=== PATIENT | female | born 1990 | race American Indian/Alaskan Native ===

== ENCOUNTER 2017-12-04 15:46 | Emergency (ER) | payer MEDICAID ==
[2017-12-04] MEDS ORDERED: ZOFRAN ONE ×2 (16:28→20:06)
[2017-12-04] MEDS ORDERED: ZOFRAN IV ONE ×2 (16:30→20:12)
[2017-12-04 18:25] LABS: Basophils % (Auto) 0.2 % (0.0-1.8); Eosinophils # (Auto) 0.1 K/mm3 (0.0-0.4); Eosinophils % (Auto) 0.5 % (0.0-4.3); Hematocrit 37.5 % (30.3-42.9); Hemoglobin 12.6 gm/dl (10.1-14.3); Lymphocytes # (Auto) 1.8 K/mm3 (1.2-5.4); Lymphocytes % (Auto) 11.7 % (13.4-35.0); Mean Corpuscular HGB Conc 34 % (30-34); Mean Corpuscular Hemoglobin 29 pg (28-32); Mean Corpuscular Volume 87 fl (79-97); Monocytes # (Auto) 0.8 K/mm3 (0.0-0.8); Monocytes % (Auto) 4.9 % (0.0-7.3); Platelet Count 319 K/mm3 (140-440); Red Blood Count 4.33 M/mm3 (3.65-5.03); Red Cell Distribution Width 14.7 % (13.2-15.2)
[2017-12-04 18:49] LABS: Alanine Aminotransferase 17 units/L (7-56); Albumin 4.3 g/dL (3.9-5); BUN/Creatinine Ratio 14; Blood Urea Nitrogen 11 mg/dL (7-17); Calcium 9.3 mg/dL (8.4-10.2); Hemolysis Index 13; Lipase 15 units/L (13-60)
[2017-12-04] MEDS ORDERED: NACL 0.9% 1000 ML 1,000 ML ONE (20:18)
[2017-12-04] MEDS ORDERED: NACL 0.9% 1000 ML 1,000 ML IV ONE (20:21)
[2017-12-04] MEDS ORDERED: TYLENOL PO ONE (21:03)
[2017-12-04] MEDS ORDERED: TYLENOL ONE (21:06)
[2017-12-05] MEDS ORDERED: NACL 0.9% 1000 ML 1,000 ML IV ONE (00:59)
[2017-12-05] MEDS ORDERED: MORPHINE IV ONE (01:00)
--- NOTE | 2017-12-05 01:11 | Emergency Department Report ---
HPI - General Chief Complaint: Abdominal Pain Time Seen by Provider: 12/05/17 00:54 - HPI HPI: 27-year-old [place] female presents to the emergency department with a complaint of some mid abdominal pain, nausea and vomiting that started about 2: 30 this afternoon. She says that she has been vomiting to the point where she has dry heaving and it just improved after multiple doses of Zofran, 1 of which she received in route with EMS. She still has some abdominal discomfort. The patient says that she has a history of this without any diagnosed etiology. She has a history of umbilical hernia that has been repaired 3 times, last time in January 2016 with a mesh. She denies any fever, vaginal discharge, dysuria. There is a small amount of vaginal bleeding which she says is abnormal for her as she has a Mirena and says she has not had any period in about one year. Recent travel or sick contacts at home. 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 Gastro issues - Social History Smoking Status: Current Every Day Smoker Substance Use Type: None - Medications Home Medications: Home Medications Medication Instructions Recorded Confirmed Last Taken Type Fluconazole [Diflucan TAB] 150 mg PO ONCE #1 tablet 12/05/17 Unknown Rx HYDROcodone/ACETAMINOPHEN [[place] 1 each PO Q8H PRN #8 tablet 12/05/17 Unknown Rx 5-325 Tablet] Nitrofurantoin Monohyd/M-Cryst 100 mg PO BID #14 capsule 12/05/17 Unknown Rx [Macrobid 100 mg Capsule] Ondansetron [Zofran Odt] 4 mg PO Q8HR PRN #10 tab.rapdis 12/05/17 Unknown Rx ED Review of Systems ROS: Stated complaint: NAUSEA/VOMITING Other details as noted in HPI Comment: All other systems reviewed and negative Constitutional: denies: chills, fever Eyes: denies: eye pain, eye discharge, vision change ENT: denies: ear pain, throat pain Respiratory: denies: cough, shortness of breath, wheezing Cardiovascular: denies: chest pain, palpitations Gastrointestinal: abdominal pain, nausea, vomiting Genitourinary: denies: urgency, dysuria Musculoskeletal: denies: back pain, joint swelling, arthralgia Skin: denies: rash, lesions Neurological: denies: headache, weakness, paresthesias Physical Exam - Physical Exam Vital Signs: Vital Signs 12/04/17 12/04/17 16:22 23:50 Temperature 98.1 F Pulse Rate 87 78 Respiratory 18 18 Rate Blood Pressure 110/80 97/72 O2 Sat by Pulse 100 96 Oximetry Physical Exam: GENERAL: The patient is well-developed well-nourished. HENT: Normocephalic. Atraumatic. Patient has moist mucous membranes. EYES: Extraocular motions are intact. Pupils equal reactive to light bilaterally. NECK: Supple. Trachea is midline. CHEST/LUNGS: Clear to auscultation. There is no respiratory distress noted. HEART/CARDIOVASCULAR: Regular. There is no tachycardia. There is no murmur. ABDOMEN: Abdomen is soft. Mild generalized tenderness to palpation of the abdomen. No guarding or rebound tenderness. Patient has normal bowel sounds. There is no abdominal distention. SKIN: Skin is warm and dry. NEURO: The patient is awake, alert, and oriented. The patient is cooperative. The patient has no focal neurologic deficits. The patient has normal speech. MUSCULOSKELETAL: There is no tenderness or deformity. There is no limitation range of motion. There is no evidence of acute injury. ED Course Vital Signs 12/04/17 12/04/17 16:22 23:50 Temperature 98.1 F Pulse Rate 87 78 Respiratory 18 18 Rate Blood Pressure 110/80 97/72 O2 Sat by Pulse 100 96 Oximetry ED Medical Decision Making - Lab Data Result diagrams: 12/04/17 17:30 12/04/17 17:30 - Radiology Data Radiology results: report reviewed, image reviewed interpreted by me: Abdominal x-ray shows nonspecific nonobstructive bowel gas. PROCEDURE: CT ABDOMEN PELVIS W CON TECHNIQUE: Computerized axial tomography of the abdomen and pelvis was performed after the IV injection of iodinated nonionic contrast. HISTORY: Abd pain COMPARISON: No prior studies are available for comparison. FINDINGS: Visualized lower thorax: No significant abnormality. Liver: Normal size and attenuation. Spleen: Normal size and attenuation. Gallbladder and biliary system: Normal. Pancreas: Normal. Adrenals: Normal. Kidneys: Both kidneys have a normal size. No hydronephrosis. No renal stones or masses. GI tract: The stomach is normal. The small bowel has a normal caliber without obstruction. No ileus or enteritis. The cecum, appendix and colon are normal. Lymph nodes and mesentery: Normal. Vasculature: Normal. Bladder: Normal. Reproductive organs: There is an intrauterine device within the uterus.. Peritoneum: No free fluid. Musculoskeletal structures: No significant abnormality. Other: None. IMPRESSION: There is no evidence of intestinal urinary tract obstruction. No ileus or enteritis. There is an intrauterine device in the uterus. Transcribed By: [facility] Dictated By: JEMIMA ALEXANDER MD Electronically Authenticated By: JEMIMA ALEXANDER MD Signed Date/Time: 12/05/17 0200 - Medical Decision Making Patient presents with some nausea, vomiting and some abdominal discomfort that started earlier in the afternoon. Labs show a leukocytosis and UTI. Otherwise no electrolyte abnormalities, renal deficiency, glucose abnormalities and she has normal belly labs. Patient received a dose of pain medication and it dropped her blood pressure but the patient also was probably dehydrated so she received a few bags of IV fluid with improvement. A CT of the abdomen and pelvis was done that did not show any acute process. Vital signs stable throughout ED course including being afebrile. She is feeling improved. Seen ambulatory in the emergency department and appears stable. She was discharged home with a referral for primary care and gastroenterology. She was given prescriptions for pain, nausea, antibiotics and something to avoid a yeast infection secondary to the antibiotics. She will increase her oral rehydration and will return to the emergency Department with any worsening of her symptoms or any acute distress. - Differential Diagnosis gastroenteritis, food poisoning, cannabinoid hyperemesis syndrome, pregnanc Critical Care Time: No Critical care attestation.: If time is entered above; I have spent that time in minutes in the direct care of this critically ill patient, excluding procedure time. ED Disposition Clinical Impression: Dehydration Abdominal pain Qualifiers: Abdominal location: generalized Qualified Code(s): R10.84 - Generalized abdominal pain Nausea & vomiting Qualifiers: Vomiting type: unspecified Vomiting Intractability: non-intractable Qualified Code(s): R11.2 - Nausea with vomiting, unspecified UTI (urinary tract infection) Qualifiers: Urinary tract infection type: acute cystitis Hematuria presence: with hematuria Qualified Code(s): N30.01 - Acute cystitis with hematuria Disposition: TO HOME OR SELFCARE Is pt being admited?: No Condition: Stable Instructions: Dehydration (ED), Urinary Tract Infection in Women (ED), Acute Nausea and Vomiting (ED), Abdominal Pain (ED) Additional Instructions: Please follow up with a primary care physician and lease buyer. I've continued referral for a local lease buyer, Dr. Whitney, follow-up regarding her abdominal pain, nausea, vomiting. Increase your oral rehydration. Return to the emergency department with any worsening of your symptoms, intractable vomiting, or any acute distress. Prescriptions: HYDROcodone/ACETAMINOPHEN [[place] 5-325 Tablet] 1 each PO Q8H PRN #8 tablet PRN Reason: Pain Ondansetron [Zofran Odt] 4 mg PO Q8HR PRN #10 tab.rapdis PRN Reason: Nausea Referrals: PRIMARY CARE, [Primary Care Provider] - 3-5 Days MATY WHITNEY MD [Staff Physician] - 3-5 Days PANDA COELHO MD [Staff Physician] - 3-5 Days [facility] [Outside] - 3-5 Days Time of Disposition: 06:26
[2017-12-05 01:23] LABS: Bilirubin,Urine NEG (Negative); Blood,Urine LG (Negative); Calcium Oxalate Crystals,Urine 3+; Color,Urine Yellow (Yellow); Mucus,Urine 3+ /HPF; Nitrite,Urine NEG (Negative); Urobilinogen,Urine < 2.0 mg/dL (<2.0)
--- NOTE | 2017-12-05 01:44 | XRay Report ---
FINAL REPORT PROCEDURE: XR ABDOMEN 2V TECHNIQUE: Abdominal radiograph, single supine AP view. HISTORY: Abd pain COMPARISON: No prior studies are available for comparison. FINDINGS: Bowel gas pattern:Nonobstructive. Masses or calcifications:None. Bony structures:No significant abnormality. Other:None. IMPRESSION: No acute abnormality
[2017-12-05] MEDS ORDERED: ROCEPHIN/NS 1 GM/50 ML 1 GM/50 ML BAG IV ONE (02:22)
[2017-12-05] MEDS ORDERED: cefTRIAXone 1 GM in NACL 0.9% 20 ML IV ONE (02:30)
[2017-12-05] MEDS ORDERED: REGLAN IV ONE (05:03)
--- NOTE | 2017-12-05 06:03 | Cat Scan Report ---
FINAL REPORT PROCEDURE: CT ABDOMEN PELVIS W CON TECHNIQUE: Computerized axial tomography of the abdomen and pelvis was performed after the IV injection of iodinated nonionic contrast. HISTORY: Abd pain COMPARISON: No prior studies are available for comparison. FINDINGS: Visualized lower thorax: No significant abnormality. Liver: Normal size and attenuation. Spleen: Normal size and attenuation. Gallbladder and biliary system: Normal. Pancreas: Normal. Adrenals: Normal. Kidneys: Both kidneys have a normal size. No hydronephrosis. No renal stones or masses. GI tract: The stomach is normal. The small bowel has a normal caliber without obstruction. No ileus or enteritis. The cecum, appendix and colon are normal. Lymph nodes and mesentery: Normal. Vasculature: Normal. Bladder: Normal. Reproductive organs: There is an intrauterine device within the uterus.. Peritoneum: No free fluid. Musculoskeletal structures: No significant abnormality. Other: None. IMPRESSION: There is no evidence of intestinal urinary tract obstruction. No ileus or enteritis. There is an intrauterine device in the uterus.
[2017-12-05 06:48] VITALS: BP 106/76
== END 2017-12-05 06:45 | disposition home or self-care (01) ==
LOC: ED 15:46
DX: N30.01 Acute cystitis with hematuria (principal); R11.2 Nausea with vomiting, unspecified; R10.84 Generalized abdominal pain; E86.0 Dehydration; F17.200 Nicotine dependence, unspecified, uncomplicated
CPT/HCPCS: 36415; 74019; 74177; 80053; 81001; 83690; 84703; 85025; 96361; 96365; 96375; 96376; 99285; J0696; J2270; J2405; J7030; Q9967

== ENCOUNTER 2018-04-07 21:18 | Emergency (ER) | payer MEDICAID ==
[2018-04-07] MEDS ORDERED: MORPHINE IV ONE (21:42)
[2018-04-07] MEDS ORDERED: ZOFRAN IV ONE (21:43)
--- NOTE | 2018-04-07 21:45 | Emergency Department Report ---
HPI - General Time Seen by Provider: 04/07/18 21:32 - HPI HPI: 28-year-old female presents to the emergency department by EMS from home with complaint of generalized abdominal pain, nausea and vomiting that started earlier this evening while she was watching television. She did not receive anything in route with EMS. The patient was here in November and seen by myself for similar symptoms and there was some mention at that time that she had had symptoms similar to that as well even prior to that visit. She also had a previous history of a ventral hernia. However the CT scan of the abdomen and pelvis at that time did not show any acute process. And she was referred to a cleaning associate. She says that she did see a cleaning associate in the next month, although she cannot remember her name, and says that she had a full workup including EGD and was found to have H. pylori. She took the medications for this. She also says that she saw this cleaning associate about one week ago and is having this test redone but does not have the results. She denies any fever, vaginal bleeding or discharge, dysuria. No recent travel or sick contacts at home. ED Past Medical Hx - Past Medical History Hx Asthma: Yes Additional medical history: umbillical hernia. pseudo seizures. Gastro issues - Social History Smoking Status: Current Every Day Smoker Substance Use Type: None - Medications Home Medications: Home Medications Medication Instructions Recorded Confirmed Last Taken Type Omeprazole Magnesium [PriLOSEC Otc] 20 mg PO QDAY 04/07/18 04/07/18 04/07/18 History HYDROcodone/APAP 5-325 [[place] 1 each PO Q8H PRN #6 tablet 04/08/18 Unknown Rx 5/325] Ondansetron [Zofran Odt] 4 mg PO Q8H PRN #10 tab.rapdis 04/08/18 Unknown Rx ED Review of Systems ROS: Stated complaint: N&V Other details as noted in HPI Comment: All other systems reviewed and negative Constitutional: denies: chills, fever Eyes: denies: eye pain, eye discharge, vision change ENT: denies: ear pain, throat pain Respiratory: denies: cough, shortness of breath, wheezing Cardiovascular: denies: chest pain, palpitations Gastrointestinal: abdominal pain, nausea, vomiting Genitourinary: denies: urgency, dysuria, discharge Musculoskeletal: denies: back pain, joint swelling, arthralgia Skin: denies: rash, lesions Neurological: denies: headache, weakness, paresthesias Physical Exam - Physical Exam Physical Exam: GENERAL: The patient is well-developed well-nourished. Patient is retching into a vomit bag. HENT: Normocephalic. Atraumatic. Patient has moist mucous membranes. EYES: Extraocular motions are intact. Pupils equal reactive to light bilaterally. NECK: Supple. Trachea is midline. CHEST/LUNGS: Clear to auscultation. There is no respiratory distress noted. HEART/CARDIOVASCULAR: Regular. There is no tachycardia. There is no murmur. ABDOMEN: Abdomen is soft. There is some generalized tenderness to palpation of the abdomen. No guarding. Patient has normal bowel sounds. There is no abdominal distention. SKIN: Skin is warm and dry. NEURO: The patient is awake, alert, and oriented. The patient is cooperative. The patient has no focal neurologic deficits. MUSCULOSKELETAL: There is no tenderness or deformity. There is no limitation range of motion. There is no evidence of acute injury. ED Medical Decision Making - Lab Data Result diagrams: 04/07/18 21:49 04/07/18 21:49 - Radiology Data Radiology results: image reviewed interpreted by me: Abdominal x-ray shows nonspecific nonobstructive bowel gas. - Medical Decision Making This patient, who has a history of GI problems and H. pylori, presents with acute abdominal pain, nausea and vomiting. She came in very nauseated and retching. Labs were mostly unremarkable except for some signs of mild dehydration starting. Abdominal x-ray showed some nonspecific nonobstructive bowel gas. Vital signs are stable including being afebrile. The patient was given some IV fluid, pain medication and nausea medication. It did require a few different antiemetics but eventually she was feeling improved and was able to pass an oral challenge of fluid. She was reevaluated multiple times over multiple hours and appears safe for discharge home at this time. She has good follow-up with gastroenterology. She was sent home with Zofran and a very small amount of pain medication. She was encouraged to return to the emergency Department with any worsening of her symptoms or any acute distress. She understands and agrees to the plan. - Differential Diagnosis gastroparesis, bowel obstruction, GERD, colitis Critical Care Time: No Critical care attestation.: If time is entered above; I have spent that time in minutes in the direct care of this critically ill patient, excluding procedure time. ED Disposition Clinical Impression: Dehydration Abdominal pain Qualifiers: Abdominal location: unspecified location Qualified Code(s): R10.9 - Unspecified abdominal pain Nausea & vomiting Qualifiers: Vomiting type: unspecified Vomiting Intractability: non-intractable Qualified Code(s): R11.2 - Nausea with vomiting, unspecified Disposition: TO HOME OR SELFCARE Is pt being admited?: No Condition: Stable Instructions: Dehydration (ED), Acute Nausea and Vomiting (ED), Abdominal Pain (ED) Additional Instructions: Increase your oral rehydration. Return to the emergency Department with any worsening of your symptoms or any acute distress. Otherwise follow-up with your primary care physician and your cleaning associate at [facility]. Prescriptions: HYDROcodone/APAP 5-325 [[place] 5/325] 1 each PO Q8H PRN #6 tablet PRN Reason: Pain Ondansetron [Zofran Odt] 4 mg PO Q8H PRN #10 tab.rapdis PRN Reason: Nausea Referrals: PRIMARY CARE, [Referring] - 3-5 Days Time of Disposition: 00:39
[2018-04-07 21:54] VITALS: BP 112/68
[2018-04-07 22:05] LABS: Basophils % (Auto) 0.3 % (0.0-1.8); Eosinophils # (Auto) 0.1 K/mm3 (0.0-0.4); Eosinophils % (Auto) 0.4 % (0.0-4.3); Hematocrit 42.7 % (30.3-42.9); Hemoglobin 13.6 gm/dl (10.1-14.3); Lymphocytes # (Auto) 1.8 K/mm3 (1.2-5.4); Lymphocytes % (Auto) 13.3 % (13.4-35.0); Mean Corpuscular HGB Conc 32 % (30-34); Mean Corpuscular Hemoglobin 28 pg (28-32); Mean Corpuscular Volume 88 fl (79-97); Monocytes # (Auto) 0.7 K/mm3 (0.0-0.8); Monocytes % (Auto) 5.1 % (0.0-7.3); Platelet Count 295 K/mm3 (140-440); Red Blood Count 4.83 M/mm3 (3.65-5.03); Red Cell Distribution Width 14.8 % (13.2-15.2)
[2018-04-07] MEDS ORDERED: REGLAN IV ONE (22:20)
[2018-04-07 22:21] LABS: Albumin 3.7 g/dL (3.9-5); BUN/Creatinine Ratio 12; Blood Urea Nitrogen 11 mg/dL (7-17); Calcium 8.7 mg/dL (8.4-10.2); Hemolysis Index 136; Lipase 11 units/L (13-60)
[2018-04-07 22:34] LABS: Alanine Aminotransferase 20 units/L (7-56)
[2018-04-08 00:05] LABS: Amorphous Crystals,Urine 1+; Bilirubin,Urine NEG (Negative); Blood,Urine NEG (Negative); Color,Urine Yellow (Yellow); Hyaline Casts,Urine 5 /LPF; Mucus,Urine 3+ /HPF; Urobilinogen,Urine < 2.0 mg/dL (<2.0)
--- NOTE | 2018-04-08 00:17 | XRay Report ---
FINAL REPORT PROCEDURE: XR ABDOMEN 2V TECHNIQUE: Abdominal series, including supine and upright AP views. HISTORY: Abd pain COMPARISON: No prior studies are available for comparison. FINDINGS: Bowel gas pattern:Nonobstructive . Masses or calcifications:None . Bony structures:No significant abnormality . Pneumoperitoneum:None . Other:No significant findings . IMPRESSION: No acute abnormality.
== END 2018-04-08 02:30 | disposition home or self-care (01) ==
LOC: ED 21:18
DX: E86.0 Dehydration (principal); F17.200 Nicotine dependence, unspecified, uncomplicated
CPT/HCPCS: 36415; 74019; 80053; 81001; 83690; 84703; 85025; 96374; 96375; 99284; J2270; J2405; J2765

== ENCOUNTER 2018-05-19 11:10 | Inpatient (IN) | payer MEDICAID ==
[2018-05-19] MEDS ORDERED: NACL 0.9% 1000 ML 1,000 ML IV ONE (11:28)
[2018-05-19] MEDS ORDERED: REGLAN IV ONE (11:30)
[2018-05-19] MEDS ORDERED: ZOFRAN IV ONE (11:30)
[2018-05-19] MEDS ORDERED: BENADRYL IV ONE (11:30)
[2018-05-19] MEDS ORDERED: DILAUDID IV ONE ×2 (11:35→14:09)
[2018-05-19] MEDS ORDERED: REGLAN ONE (11:49)
[2018-05-19] MEDS ORDERED: BENADRYL ONE (11:49)
[2018-05-19] MEDS ORDERED: DILAUDID ONE ×3 (11:49→19:28)
[2018-05-19] MEDS ORDERED: ZOFRAN ONE (11:49)
[2018-05-19] MEDS ORDERED: NACL 0.9% 1000 ML 1,000 ML ONE ×2 (11:53→19:04)
[2018-05-19 12:03] LABS: Basophils % (Auto) 0.5 % (0.0-1.8); Eosinophils # (Auto) 0.2 K/mm3 (0.0-0.4); Eosinophils % (Auto) 2.1 % (0.0-4.3); Hematocrit 42.3 % (30.3-42.9); Hemoglobin 13.9 gm/dl (10.1-14.3); Lymphocytes # (Auto) 2.3 K/mm3 (1.2-5.4); Lymphocytes % (Auto) 21.4 % (13.4-35.0); Mean Corpuscular HGB Conc 33 % (30-34); Mean Corpuscular Hemoglobin 29 pg (28-32); Mean Corpuscular Volume 88 fl (79-97); Monocytes # (Auto) 0.7 K/mm3 (0.0-0.8); Monocytes % (Auto) 6.7 % (0.0-7.3); Platelet Count 343 K/mm3 (140-440); Red Blood Count 4.82 M/mm3 (3.65-5.03)
[2018-05-19 12:26] LABS: Alanine Aminotransferase 52 units/L (7-56); Albumin 3.9 g/dL (3.9-5); BUN/Creatinine Ratio 10; Blood Urea Nitrogen 9 mg/dL (7-17); Calcium 8.9 mg/dL (8.4-10.2); Hemolysis Index 9; Lipase 16 units/L (13-60)
--- NOTE | 2018-05-19 14:02 | Emergency Department Report ---
ED Abdominal Pain HPI - General Chief Complaint: Abdominal Pain Stated Complaint: n/v Time Seen by Provider: 05/19/18 11:29 Source: patient Mode of arrival: Stretcher Limitations: No Limitations - History of Present Illness Initial Comments: 28-year-old female with a past medical history of umbilical hernia, pseudoseizures, previous H. pylori infection, and asthma presents to the hospital with complaints of right lower quadrant abdominal pain since May 11. Patient was sharp, moderate to severe in intensity, intermittent, gradually worsening. She was admitted to [facility] May 11 until May 15 for this pain. She was diagnosed with colitis and discharged on hydrocodone, Levaquin, Flagyl, and omeprazole. Despite taking these medications pain has worsened. Decreased by mouth intake with nausea and vomiting this morning. 3 soft stools reported. No fever, melena, hematochezia, or hematemesis reported. GI MD: Dr Kumar (female) Severity scale (0 -10): 10 - Related Data Home Medications Medication Instructions Recorded Confirmed Last Taken Omeprazole Magnesium [PriLOSEC Otc] 20 mg PO QDAY 04/07/18 04/07/18 04/07/18 Previous Rx's Medication Instructions Recorded Last Taken Type HYDROcodone/APAP 5-325 [[place] 1 each PO Q8H PRN #6 tablet 04/08/18 Unknown Rx 5/325] Ondansetron [Zofran Odt] 4 mg PO Q8H PRN #10 tab.rapdis 04/08/18 Unknown Rx Allergies Allergy/AdvReac Type Severity Reaction Status Date / Time latex Allergy Hives Verified 12/04/17 16:22 ED Review of Systems ROS: Stated complaint: n/v Other details as noted in HPI Comment: All other systems reviewed and negative ED Past Medical Hx - Past Medical History Hx Asthma: Yes Additional medical history: umbillical hernia. pseudo seizures. Gastro issues - Surgical History Additional Surgical History: hernia repair - Social History Smoking Status: Current Every Day Smoker Substance Use Type: Alcohol, Marijuana - Medications Home Medications: Home Medications Medication Instructions Recorded Confirmed Last Taken Type Omeprazole Magnesium [PriLOSEC Otc] 20 mg PO QDAY 04/07/18 04/07/18 04/07/18 History HYDROcodone/APAP 5-325 [[place] 1 each PO Q8H PRN #6 tablet 04/08/18 Unknown Rx 5/325] Ondansetron [Zofran Odt] 4 mg PO Q8H PRN #10 tab.rapdis 04/08/18 Unknown Rx ED Physical Exam - General Limitations: No Limitations - Other Other exam information: General: No limitations, patient is alert in no acute distress Head exam: Atraumatic, normocephalic Eyes exam: Normal appearance ENT: Moist mucous membrane, normal oropharynx Neck exam: Normal inspection, full range of motion, no meningismus nontender Respiratory exam: Clear to auscultation bilateral, no wheezes, rales, crackles Cardiovascular: Normal rate and rhythm, normal heart sounds Abdomen: Soft, nondistended, right lower quadrant tenderness area maximum tenderness but also pain in his suprapubic area and generalized, with normal bowel sounds, no rebound, or guarding Extremity: Full range of motion normal inspection no deformity Back: Normal Inspection, full range of motion, no tenderness Neurologic: Alert, oriented x3, cranial nerves intact, no motor or sensory deficit Psychiatric: normal affect, normal mood Skin: Warm, dry, intact ED Course Vital Signs 05/19/18 11:24 Temperature 98.7 F Pulse Rate 102 H Respiratory 20 Rate Blood Pressure 136/93 O2 Sat by Pulse 98 Oximetry - Consultations Consultation #1: 05/19/18 14:27 Case d/w Dr Tamayo, surgery. Requests hospitalist admission, will consult ED Medical Decision Making - Lab Data Result diagrams: 05/19/18 11:35 05/19/18 11:35 Lab Results 05/19/18 05/19/18 05/19/18 Range/Units 11:35 11:35 11:35 WBC 10.6 (4.5-11.0) K/mm3 RBC 4.82 (3.65-5.03) M/mm3 Hgb 13.9 (10.1-14.3) gm/dl Hct 42.3 (30.3-42.9) % MCV 88 (79-97) fl MCH 29 (28-32) pg MCHC 33 (30-34) % RDW 15.0 (13.2-15.2) % Plt Count 343 (140-440) K/mm3 Lymph % (Auto) 21.4 (13.4-35.0) % [place] % (Auto) 6.7 (0.0-7.3) % Eos % (Auto) 2.1 (0.0-4.3) % Baso % (Auto) 0.5 (0.0-1.8) % Lymph # 2.3 (1.2-5.4) K/mm3 [place] # 0.7 (0.0-0.8) K/mm3 Eos # 0.2 (0.0-0.4) K/mm3 Baso # 0.0 (0.0-0.1) K/mm3 Seg Neutrophils % 69.3 (40.0-70.0) % Seg Neutrophils # 7.4 (1.8-7.7) K/mm3 Sodium 138 (137-145) mmol/L Potassium 4.3 (3.6-5.0) mmol/L Chloride 100.4 (98-107) mmol/L Carbon Dioxide 25 (22-30) mmol/L Anion Gap 17 mmol/L BUN 9 (7-17) mg/dL Creatinine 0.9 (0.7-1.2) mg/dL Estimated GFR > 60 ml/min BUN/Creatinine Ratio 10 % Glucose 103 H (65-100) mg/dL Calcium 8.9 (8.4-10.2) mg/dL Total Bilirubin 0.20 (0.1-1.2) mg/dL AST 60 H (5-40) units/L ALT 52 (7-56) units/L Alkaline Phosphatase 50 (35-129) units/L Total Protein 7.0 (6.3-8.2) g/dL Albumin 3.9 (3.9-5) g/dL Albumin/Globulin Ratio 1.3 % Lipase 16 (13-60) units/L HCG, Qual Negative (Negative) - Radiology Data Radiology results: report reviewed CT ABDOMEN PELVIS WITH CONTRAST: HISTORY: Lower abdominal pain, nausea, vomiting. COMPARISON: 12/05/17. TECHNIQUE: Helical CT in 1.25mm intervals following IV contrast. Sagittal and coronal reconstructions. FINDINGS: Lung bases: Normal. Liver: Normal. Biliary system: Normal. Pancreas: Normal. Spleen: Normal. Kidneys/ureters/bladder: Normal. Adrenal glands: Normal. Aorta: Normal. Intestines: There is suggestion of mild thickening of the colon wall which could represent a mild colitis. No evidence for obstruction or free air. Appendix: The appendix is dilated up to 1 cm with mild mucosal enhancement there is a small amount of fluid adjacent to the tip of the appendix. No free air or abscess is identified. Pelvic viscera: Normal. Ascites: None. Adenopathy: None. Musculoskeletal: Intact. A small supraumbilical hernia containing fat is identified. IMPRESSION: Findings concerning for acute appendicitis. Mild thickening of the colon could represent a mild colitis. These findings were discussed with Dr. Cavazos in the emergency department at 1342 hrs. - Medical Decision Making Patient she was given Dilaudid Reglan, Benadryl, Zofran and Zosyn in the ED. Surgery contacted and will consult. Hospitalist informed for admission - Differential Diagnosis appy, colitis, uti, pid, cyst Critical Care Time: No Critical care attestation.: If time is entered above; I have spent that time in minutes in the direct care of this critically ill patient, excluding procedure time. ED Disposition Clinical Impression: Acute appendicitis Disposition: OP ADMIT IP TO THIS HOSP Is pt being admited?: Yes Condition: Stable Time of Disposition: 14:29 (Karissa/hosp)
--- NOTE | 2018-05-19 14:06 | Cat Scan Report ---
CT ABDOMEN PELVIS WITH CONTRAST: HISTORY: Lower abdominal pain, nausea, vomiting. COMPARISON: 12/05/17. TECHNIQUE: Helical CT in 1.25mm intervals following IV contrast. Sagittal and coronal reconstructions. FINDINGS: Lung bases: Normal. Liver: Normal. Biliary system: Normal. Pancreas: Normal. Spleen: Normal. Kidneys/ureters/bladder: Normal. Adrenal glands: Normal. Aorta: Normal. Intestines: There is suggestion of mild thickening of the colon wall which could represent a mild colitis. No evidence for obstruction or free air. Appendix: The appendix is dilated up to 1 cm with mild mucosal enhancement there is a small amount of fluid adjacent to the tip of the appendix. No free air or abscess is identified. Pelvic viscera: Normal. Ascites: None. Adenopathy: None. Musculoskeletal: Intact. A small supraumbilical hernia containing fat is identified. IMPRESSION: Findings concerning for acute appendicitis. Mild thickening of the colon could represent a mild colitis. These findings were discussed with Dr. Cavazos in the emergency department at 1342 hrs.
[2018-05-19] MEDS ORDERED: ZOSYN/NS 4.5GM/100ML 4.5 GM/100 ML VIAL IV SCH ×2 (15:00→20:00)
[2018-05-19] MEDS ORDERED: TRANSDERM-SCOP TD ONE ×2 (17:30→18:00)
--- NOTE | 2018-05-19 17:30 | Consultation ---
History of Present Illness Consult date: 05/19/18 Reason for consult: abdominal pain Requesting physician: KATELIN PLATA Chief complaint: abdominal pain - History of present illness History of present illness: 28yo F with abdominal pain since 05/12 presents for evaluation. she was recently admitted at another hospital with abdominal, N/V/D. Assessed to have colitis and given Abx. The abdominal pain was periumbilical at the time. On 05/15, she was discharged. The pain was ok with pain meds. However, she did not completely recover. Today the pain really intensified and localized to the RLQ and pelvic area. Past History Past Medical History: GERD, other (pseudoseizure, asthma) Past Surgical History: , hernia repair (umbilical x 3) Social history: smoking (occasional - also marijuana), alcohol abuse (occasional ). denies: prescription drug abuse, IV drug use Family history: no significant family history Medications and Allergies Allergies Allergy/AdvReac Type Severity Reaction Status Date / Time latex Allergy Hives Verified 12/04/17 16:22 Home Medications Medication Instructions Recorded Confirmed Last Taken Type Omeprazole Magnesium [PriLOSEC Otc] 20 mg PO BID 04/07/18 05/19/18 05/18/18 History HYDROcodone/APAP 7.5-325 [Kim 1 each PO Q6HR PRN 05/19/18 05/19/18 Unknown History 7.5/325] Levofloxacin [Levaquin] 750 mg PO QDAY 05/19/18 05/19/18 05/18/18 History metroNIDAZOLE [Flagyl] 500 mg PO Q8HR 05/19/18 05/19/18 05/19/18 History Active Meds: Active Medications Piperacillin Sod/Tazobactam Sod (Zosyn/Ns 4.5gm/100ml) 4.5 gm in 100 mls @ 200 mls/hr IV ONCE PEARL Review of Systems - Constitutional chills, sweats, no fever - EENT Ears, nose, mouth and throat: no nasal congestion, no sinus pain, no dysphagia - Cardiovascular no chest pain - Respiratory no cough, no shortness of breath - Gastrointestinal abdominal pain, nausea, vomiting, diarrhea, change in bowel habits, loss of appetite, heartburn, dyspepsia/bloating, no constipation, no hematemesis, no coffee ground emesis, no BRBPR, no melena, no hematochezia - Genitourinary Genitourinary: no dysuria - Integumentary no rash, no wounds - Hematologic/Lymphatic no easy bruising, no easy bleeding Exam Vital Signs Temp Pulse Resp BP Pulse Ox 98.7 F 102 H 20 136/93 98 05/19/18 11:24 05/19/18 11:24 05/19/18 11:24 05/19/18 11:24 05/19/18 11:24 - General physical appearance Positive: well developed, well nourished, no distress, no pain - Eyes Positive: normal occular movement. Negative: icteric - Respiratory Positive: normal expansion, normal respiratory effort, clear to auscultation - Cardiovascular Rhythm: regular - Breasts Breasts: deferred - Abdomen Abdomen: Present: soft, tender (in RLQ and pelvic area), surgical scars (well healed), other (+rovsing's. +pelvic shake tenderness). Absent: distended, masses, rebound, guarding, rigid - Integumentary no rash, no growths, no abnormal pigmentation - Neurologic Neurologic: alert and oriented to time, place and person, motor strength and sensation are grossly intact - Psychiatric Psychiatric: appropriate mood/affect, intact judgment & insight Results - Labs 05/19/18 11:35 05/19/18 11:35 Abnormal lab results 05/19/18 Range/Units 11:35 Glucose 103 H (65-100) mg/dL AST 60 H (5-40) units/L Diabetes panel 05/19/18 Range/Units 11:35 Sodium 138 (137-145) mmol/L Potassium 4.3 (3.6-5.0) mmol/L Chloride 100.4 (98-107) mmol/L Carbon Dioxide 25 (22-30) mmol/L BUN 9 (7-17) mg/dL Creatinine 0.9 (0.7-1.2) mg/dL Glucose 103 H (65-100) mg/dL Calcium 8.9 (8.4-10.2) mg/dL AST 60 H (5-40) units/L ALT 52 (7-56) units/L Alkaline Phosphatase 50 (35-129) units/L Total Protein 7.0 (6.3-8.2) g/dL Albumin 3.9 (3.9-5) g/dL Calcium panel 05/19/18 Range/Units 11:35 Calcium 8.9 (8.4-10.2) mg/dL Albumin 3.9 (3.9-5) g/dL Pituitary panel 05/19/18 Range/Units 11:35 Sodium 138 (137-145) mmol/L Potassium 4.3 (3.6-5.0) mmol/L Chloride 100.4 (98-107) mmol/L Carbon Dioxide 25 (22-30) mmol/L BUN 9 (7-17) mg/dL Creatinine 0.9 (0.7-1.2) mg/dL Glucose 103 H (65-100) mg/dL Calcium 8.9 (8.4-10.2) mg/dL Adrenal panel 05/19/18 Range/Units 11:35 Sodium 138 (137-145) mmol/L Potassium 4.3 (3.6-5.0) mmol/L Chloride 100.4 (98-107) mmol/L Carbon Dioxide 25 (22-30) mmol/L BUN 9 (7-17) mg/dL Creatinine 0.9 (0.7-1.2) mg/dL Glucose 103 H (65-100) mg/dL Calcium 8.9 (8.4-10.2) mg/dL Total Bilirubin 0.20 (0.1-1.2) mg/dL AST 60 H (5-40) units/L ALT 52 (7-56) units/L Alkaline Phosphatase 50 (35-129) units/L Total Protein 7.0 (6.3-8.2) g/dL Albumin 3.9 (3.9-5) g/dL - Imaging CT scan - abdomen: report reviewed, image reviewed CT scan - pelvis: report reviewed, image reviewed Assessment and Plan - Patient Problems (1) Acute appendicitis Current Visit: Yes Status: Acute Plan to address problem: Pt stable. Based on her history, exam, and CT, I do believe that she has acute appendicitis. We discussed procedure (lap appy), risks, benefits, alternatives. I recommended lap appy. All questions answered. Pt consented. time=45min
--- NOTE | 2018-05-19 17:31 | Anesthesia Consultation ---
Anesthesia Consult and Med Hx Date of service: 05/19/18 - Airway Anesthetic Teeth Evaluation: Chipped ROM Head & Neck: Adequate Mental/Hyoid Distance: Adequate Mallampati Class: Class II Intubation Access Assessment: Good - Pulmonary Exam CTA: Yes - Cardiac Exam Cardiac Exam: No Murmur - Pre-Operative Health Status ASA Pre-Surgery Classification: ASA3 Proposed Anesthetic Plan: General - Pulmonary Hx Asthma: Yes - Gastrointestinal Hx Gastroesophageal Reflux Disease: Yes
[2018-05-19] MEDS ORDERED: DILAUDID IV PRN (17:32)
[2018-05-19] MEDS ORDERED: ZOFRAN IV PRN ×2 (17:32→17:49)
[2018-05-19] MEDS ORDERED: DEMEROL IV PRN ×2 (17:32→19:41)
[2018-05-19] MEDS ORDERED: NARCAN 0.4 MG/1 ML IV PRN (17:32)
[2018-05-19] MEDS ORDERED: ANCEF/STERILE WATER 2 GM/20 ML 2 GM/20 ML SYRINGE IV SCH (17:32)
--- NOTE | 2018-05-19 17:32 | Anesthesia Day of Surgery ---
Anesthesia Day of Surgery - Day of Surgery Patient Examined: Yes Patient H&P Reviewed: Yes Patient is NPO: Yes
[2018-05-19] MEDS ORDERED: XYLOCAINE 1% 20 mL INFILTRATI ONE (17:33)
[2018-05-19] MEDS ORDERED: QUELICIN ONE (17:33)
[2018-05-19] MEDS ORDERED: ZEMURON IV ONE (17:33)
[2018-05-19] MEDS ORDERED: MARCAINE 0.5% INFILTRATI ONE (17:33)
[2018-05-19] MEDS ORDERED: DIPRIVAN 10 MG/ML IV ONE (17:34)
[2018-05-19] MEDS ORDERED: VERSED ONE (17:34)
[2018-05-19] MEDS ORDERED: SUBLIMAZE ONE (17:34)
[2018-05-19] MEDS ORDERED: TYLENOL PO PRN (17:49)
[2018-05-19] MEDS ORDERED: SODIUM CHLORIDE FLUSH SYRINGE 10 ML IV PRN (17:49)
[2018-05-19] MEDS ORDERED: TORADOL IV PRN (17:49)
--- NOTE | 2018-05-19 17:49 | History and Physical Report ---
History of Present Illness Date of examination: 05/19/18 Date of admission: 05/19/18 14:30 Chief complaint: Chief complaint Right lower quadrant pain for 4 days History of present illness: History of Present Illness: 28-year-old female with past medical history of asthma presents with right lower quadrant pain of 3 days' duration. Patient was admitted for supposed colitis from May 12 to May 15 at a different hospital. Patient was treated as colitis and discharged on Levaquin and Flagyl. Patient continued to have right lower quadrant pain which has been increasing in intensity over the past 4 days. Associated with some nausea and vomiting. Pain is about 10 on a scale of 1-10. No exacerbating or relieving factors. No fever or chills. Patient was admitted to [facility]. No recent travel Past Medical History Hx Asthma: Yes Recent colitis Surgical History Additional Surgical History: Umbilical hernia repairx2 Social History: Smoking Status: Current Every Day Smoker Substance Use Type: Alcohol, Marijuana, Family history HTN Medications: Home Medications: Home Medications Medication Instructions Recorded Confirmed Last Taken Type Omeprazole Magnesium [PriLOSEC Otc] 20 mg PO QDAY 04/07/18 04/07/18 04/07/18 History HYDROcodone/APAP 5-325 [[place]asper 1 each PO Q8H PRN #6 tablet 04/08/18 Unknown Rx 5/325] Ondansetron [Zofran Odt] 4 mg PO Q8H PRN #10 tab.rapdis 04/08/18 Unknown Rx Past History Past Medical History: GERD, other (pseudoseizure, asthma) Past Surgical History: , hernia repair (umbilical x 3) Social history: smoking (occasional - also marijuana), alcohol abuse (occasional ). denies: prescription drug abuse, IV drug use Family history: no significant family history Medications and Allergies Allergies Allergy/AdvReac Type Severity Reaction Status Date / Time latex Allergy Hives Verified 12/04/17 16:22 Home Medications Medication Instructions Recorded Confirmed Last Taken Type Omeprazole Magnesium [PriLOSEC Otc] 20 mg PO BID 04/07/18 05/19/18 05/18/18 History HYDROcodone/APAP 7.5-325 [[place] 1 each PO Q6HR PRN 05/19/18 05/19/18 Unknown History 7.5/325] Levofloxacin [Levaquin] 750 mg PO QDAY 05/19/18 05/19/18 05/18/18 History metroNIDAZOLE [Flagyl] 500 mg PO Q8HR 05/19/18 05/19/18 05/19/18 History Active Meds: Active Medications Hydromorphone HCl (Dilaudid) 0.25 mg IV Q10MIN PRN PRN Reason: Pain, Moderate (4-6) Stop: 05/20/18 06:00 Hydromorphone HCl (Dilaudid) 0.5 mg IV Q10MIN PRN PRN Reason: Pain , Severe (7-10) Piperacillin Sod/Tazobactam Sod (Zosyn/Ns 4.5gm/100ml) 4.5 gm in 100 mls @ 200 mls/hr IV ONCE PEARL Cefazolin Sodium (Ancef/Sterile Water 2 Gm/20 Ml) 2 gm in 20 mls @ 40 mls/hr IV [facility] Stop: 05/20/18 06:00 Lactated Ringer's (Lactated Ringers) 1,000 mls @ 150 mls/hr IV DIRECT PEARL Ketorolac Tromethamine (Toradol) 30 mg IV ONCE PRN PRN Reason: Pain, Moderate (4-6) Meperidine HCl (Demerol) 25 mg IV ONCE PRN PRN Reason: Shivering Naloxone HCl (Narcan 0.4 Mg/1 Ml) 0.1 mg IV Q2MIN PRN PRN Reason: Res Rate </= 8 or 02 SAT < 92% Ondansetron HCl (Zofran) 8 mg IV ONCE PRN PRN Reason: Nausea And Vomiting Scopolamine (Transderm-Scop) 1 each TD ONCE ONE Stop: 05/19/18 17:33 Review of Systems All systems: negative Constitutional: no weight loss, no weight gain, no fever, no chills, no sweats, no night sweats Ears, nose, mouth and throat: no ear pain, no ear discharge, no tinnitis, no dysphagia, no hoarseness, no sore throat Cardiovascular: no chest pain, no orthopnea, no palpitations, no rapid/ irregular heart beat, no edema, no syncope, no lightheadedness, no shortness of breath Respiratory: no cough, no cough with sputum, no excessive sputum, no hemoptysis , no shortness of breath, no dyspnea on exertion Gastrointestinal: abdominal pain, nausea, vomiting Genitourinary Female: no dysuria, no urinary frequency, no urgency, no stress incontinence Menstruation: currently menstrual Musculoskeletal: no neck stiffness, no neck pain, no shooting arm pain, no arm numbness/tingling, no low back pain Integumentary: no rash, no pruritis, no redness, no sores, no wounds Neurological: no head injury, no tingling, no seizures, no syncope Psychiatric: no anxiety, no memory loss, no change in sleep habits Endocrine: no cold intolerance, no heat intolerance, no polyphagia, no excessive thirst Hematologic/Lymphatic: no easy bruising, no easy bleeding Allergic/Immunologic: no urticaria, no allergic rhinitis, no wheezing Exam - Constitutional Vitals: Temp Pulse Resp BP Pulse Ox 98.5 F 82 16 130/88 98 05/19/18 16:03 05/19/18 16:03 05/19/18 16:03 05/19/18 16:03 05/19/18 16:03 General appearance: Present: no acute distress, well-nourished - EENT Eyes: Present: PERRL ENT: hearing intact, clear oral mucosa - Neck Neck: Present: supple, normal ROM - Respiratory Respiratory effort: normal Respiratory: bilateral: CTA - Cardiovascular Heart rate: 80 Rhythm: regular Heart Sounds: Present: S1 & S2. Absent: rub, click - Extremities Extremities: no ischemia, pulses intact, pulses symmetrical, No edema Peripheral Pulses: within normal limits - Abdominal General gastrointestinal: Present: tender, non-distended, normal bowel sounds Localized gastrointestinal: tender: RLQ, guarding: RLQ, rebound: RLQ Female genitourinary: Present: normal - Rectal Rectal Exam: deferred - Integumentary Integumentary: Present: clear, warm, dry - Musculoskeletal Musculoskeletal: gait normal, strength equal bilaterally - Psychiatric Psychiatric: appropriate mood/affect, intact judgment & insight - Neurologic Neurologic: CNII-XII intact, moves all extremities - Allied Health Allied health notes reviewed: nursing, case management Results - Labs CBC & Chem 7: 05/19/18 11:35 05/19/18 11:35 Labs: Laboratory Last Values WBC 10.6 K/mm3 (4.5-11.0) 05/19/18 11:35 RBC 4.82 M/mm3 (3.65-5.03) 05/19/18 11:35 Hgb 13.9 gm/dl (10.1-14.3) 05/19/18 11:35 Hct 42.3 % (30.3-42.9) 05/19/18 11:35 MCV 88 fl (79-97) 05/19/18 11:35 MCH 29 pg (28-32) 05/19/18 11:35 MCHC 33 % (30-34) 05/19/18 11:35 RDW 15.0 % (13.2-15.2) 05/19/18 11:35 Plt Count 343 K/mm3 (140-440) 05/19/18 11:35 Lymph % (Auto) 21.4 % (13.4-35.0) 05/19/18 11:35 [place] % (Auto) 6.7 % (0.0-7.3) 05/19/18 11:35 Eos % (Auto) 2.1 % (0.0-4.3) 05/19/18 11:35 Baso % (Auto) 0.5 % (0.0-1.8) 05/19/18 11:35 Lymph # 2.3 K/mm3 (1.2-5.4) 05/19/18 11:35 [place] # 0.7 K/mm3 (0.0-0.8) 05/19/18 11:35 Eos # 0.2 K/mm3 (0.0-0.4) 05/19/18 11:35 Baso # 0.0 K/mm3 (0.0-0.1) 05/19/18 11:35 Seg Neutrophils % 69.3 % (40.0-70.0) 05/19/18 11:35 Seg Neutrophils # 7.4 K/mm3 (1.8-7.7) 05/19/18 11:35 Sodium 138 mmol/L (137-145) 05/19/18 11:35 Potassium 4.3 mmol/L (3.6-5.0) 05/19/18 11:35 Chloride 100.4 mmol/L (98-107) 05/19/18 11:35 Carbon Dioxide 25 mmol/L (22-30) 05/19/18 11:35 Anion Gap 17 mmol/L 05/19/18 11:35 BUN 9 mg/dL (7-17) 05/19/18 11:35 Creatinine 0.9 mg/dL (0.7-1.2) 05/19/18 11:35 Estimated GFR > 60 ml/min 05/19/18 11:35 BUN/Creatinine Ratio 10 % 05/19/18 11:35 Glucose 103 mg/dL (65-100) H 05/19/18 11:35 Calcium 8.9 mg/dL (8.4-10.2) 05/19/18 11:35 Total Bilirubin 0.20 mg/dL (0.1-1.2) 05/19/18 11:35 AST 60 units/L (5-40) H 05/19/18 11:35 ALT 52 units/L (7-56) 05/19/18 11:35 Alkaline Phosphatase 50 units/L (35-129) 05/19/18 11:35 Total Protein 7.0 g/dL (6.3-8.2) 05/19/18 11:35 Albumin 3.9 g/dL (3.9-5) 05/19/18 11:35 Albumin/Globulin Ratio 1.3 % 05/19/18 11:35 Lipase 16 units/L (13-60) 05/19/18 11:35 HCG, Qual Negative (Negative) 05/19/18 11:35 - Imaging and Cardiology Imaging and Cardiology: CT abdomen and pelvis: Appendix: The appendix is dilated up to 1 cm with mild mucosal enhancement there is a small amount of fluid adjacent to the tip of the appendix. No free air or abscess is identified. IMPRESSION: Findings concerning for acute appendicitis. Mild thickening of the colon could represent a mild colitis. Assessment and Plan Advance Directives: Yes (full code) VTE prophylaxis?: Mechanical Plan of care discussed with patient/family: Yes - Patient Problems (1) Acute appendicitis Current Visit: Yes Status: Acute Qualifiers: Acute appendicitis type: unspecified acute appendicitis type Qualified Code (s): K35.80 - Unspecified acute appendicitis Plan to address problem: Patient initiated on IV Zosyn IV morphine and IV Zofran Surgical consult requested (2) Transaminitis Current Visit: Yes Status: Chronic Plan to address problem: Mild Possible fatty liver (3) DVT prophylaxis Current Visit: Yes Status: Acute Plan to address problem: SCDs
[2018-05-19] MEDS ORDERED: ANCEF/STERILE WATER 2 GM/20 ML 2 GM/20 ML SYRINGE IV ONE (17:50)
[2018-05-19] MEDS ORDERED: XYLOCAINE 1% 20 mL ONE (17:56)
[2018-05-19] MEDS ORDERED: MARCAINE 0.5% 30 ML INFILTRATI ONE (17:56)
[2018-05-19] MEDS ORDERED: LACTATED RINGERS 1,000 ML IV SCH (18:00)
[2018-05-19] MEDS ORDERED: D5NS 1,000 ML IV SCH (18:00)
[2018-05-19] MEDS ORDERED: ROBINUL ONE (18:35)
[2018-05-19] MEDS ORDERED: BLOXIVERZ ONE (18:35)
[2018-05-19] MEDS ORDERED: TORADOL ONE (18:52)
--- NOTE | 2018-05-19 18:54 | Post Operative Note ---
Date of procedure: 05/19/18 (Dictation#[id number]) Pre-op diagnosis: acute appendicitis Post-op diagnosis: same Findings: mild swelling of appendix with adhesion to small bowel at its tip. No perforation. No purulent drainage. Adhesions noted only in the periumbilical area. Uterus was adhered to the suprapubic incision. Procedure: Lap appy Anesthesia: GETA Surgeon: MONIKA HUYNH Estimated blood loss: minimal (20cc) Pathology: list (appy) Condition: stable Disposition: PACU
[2018-05-19] MEDS ORDERED: NORCO 5/325 PO PRN (18:55)
[2018-05-19] MEDS: DILAUDID IV PRN ×2 (19:00→19:10)
[2018-05-19] MEDS ORDERED: DEMEROL ONE (19:03)
[2018-05-19] MEDS ORDERED: PEPCID IV SCH (22:00)
--- NOTE | 2018-05-19 22:26 | Operative Report ---
PREOPERATIVE DIAGNOSIS: Acute appendicitis. POSTOPERATIVE DIAGNOSIS: Acute appendicitis. PROCEDURE: Laparoscopic appendectomy. ATTENDING PHYSICIAN: Willie Tamayo MD ANESTHESIA: General. ESTIMATED BLOOD LOSS: 20 mL. FLUIDS: 800 mL crystalloid. FINDINGS: Very long mildly swollen appendix with adhesions of the tip to the small bowel. There was no perforation, no purulent fluid. Mild edema was seen in the periphery. Colon and small bowel appeared completely normal. SPECIMEN: Appendix. DRAINS: None. COMPLICATIONS: None. CONDIATION: Stable. DISPOSITION: Transferred to Recovery Room. INDICATIONS: This is a 28-year-old female who presented with significant abdominal pain associated with nausea, vomiting. She had previously been admitted to another hospital and discharged on 05/15/2018, however, the pain continued to progress. She came to [facility], [place] for evaluation and treatment. CT scan suggested early appendicitis. Exam and history were consistent with that. Therefore, the patient was assessed to be a need for a laparoscopic appendectomy. Procedure, risks, benefits, alternatives such as IV antibiotics were discussed. I recommended surgery. Risks included but were not limited to infection, bleeding, pain, injury to surrounding structures, possible need for open surgery, possible need for colon resection, possible need for ostomy. The patient understood and consented. OPERATIVE NOTE: The patient was brought to the operating room and placed on the table in supine position. After adequate general anesthesia was established, the patient was prepped and draped in the usual sterile fashion. Two grams of Ancef had been administered prior to the start of the case. SCDs were in place. Based on the patient's previous surgery, I took extra care to decide where and how ports will be placed. I began by placing a Veress needle in the left upper quadrant. I figured this was far away from her prior umbilical hernia repairs to minimize risk of injury, 3 fingerbreadths below the costal margin, I placed the Veress needle, I was able to insufflate in the first attempt. Thereafter, I placed a 5 mm port in the left lower quadrant using the Optiview technique, I was able to enter the peritoneal cavity safely. There were no adhesions around that area. I examined where the Veress needle was inserted. There was no injury to the underlying structures and there were no adhesions. All the adhesions were primarily around the periumbilical area. The uterus was seen to be adhered to the anterior abdominal wall at her suprapubic incision site. There were no other adhesions. I then placed a 5 mm port in the infraumbilical space away from where the adhesions were and I normally would place a suprapubic port; however, based on the location of the uterus, I felt that might be risky, therefore, I placed in the right upper quadrant. This was a 12 mm port. The last 2 ports were placed under direct vision. The appendix was immediately identified as it was sitting on top of the small bowel. The tip of it was adhered to the small bowel, but with gentle blunt dissection, I was able to remove it without any injury to the small bowel. Please note, I did examine the surrounding area. I saw no evidence of any disease process involving the uterus or ovaries. There was nothing in the pelvis. The rest of the small bowel and colon appeared to be normal. Stomach and liver appeared to be normal. I was able to then isolate the base of the appendix. I placed a 45 mm laparoscopic stapler across the base. I tried to go across the mesoappendix as well with a blue load; however, there was one point of bleeding after we fired the stapler, so I placed another stapler across the base of the mesoappendix using the white load. Thereafter, I had good hemostasis. I looked at the area very carefully of the mesoappendix as well as the base of the appendix. We washed the area thoroughly. I saw no clear evidence of any bleeding. We watched for at least a few minutes. Both the critical care technician and I felt comfortable. there was no bleeding; however, as a precaution, I thought just to be on the safe side, I would place Surgicel on top of the mesoappendix staple line as well as the appendix base staple line. Of note, the staple line at the base of the appendix was right on the cecum, therefore, there was no stump. After the Surgicel was placed, I then covered that with omentum. There were no other issues in the rest of the abdomen, ports were removed. We closed the 12 mm right upper quadrant port site with the [place]-Kg fascial closure device. We had a good closure. There was no air leak after we were done. We then removed the two 5 mm ports. I injected a combination of 1% lidocaine and 0.5% Marcaine into all the port sites. 4-0 Monocryl was used to close the skin sites with subcuticular stitches. The skin was cleaned and dried. Dermabond was placed. The patient tolerated the procedure well. There were no complications. All counts were correct at the end of the case. JOB# [id number] SIMON/AARON
[2018-05-19] MEDS: MORPHINE IV PRN (22:35)
[2018-05-19] MEDS: SODIUM CHLORIDE FLUSH SYRINGE 10 ML IV SCH (22:36)
[2018-05-19 22:52] LABS: Bilirubin,Urine NEG (Negative); Blood,Urine NEG (Negative); Color,Urine Yellow (Yellow); Protein,Urine <15 mg/dL mg/dL (Negative); Urobilinogen,Urine < 2.0 mg/dL (<2.0); WBC,Urine < 1.0 /HPF (0.0-6.0)
[2018-05-20] MEDS: MORPHINE IV PRN ×2 (05:16→09:44)
[2018-05-20 06:35] LABS: Basophils % (Auto) 0.6 % (0.0-1.8); Eosinophils # (Auto) 0.1 K/mm3 (0.0-0.4); Hematocrit 36.4 % (30.3-42.9); Hemoglobin 11.9 gm/dl (10.1-14.3); Lymphocytes # (Auto) 3.2 K/mm3 (1.2-5.4); Lymphocytes % (Auto) 44.7 % (13.4-35.0); Mean Corpuscular HGB Conc 33 % (30-34); Mean Corpuscular Hemoglobin 29 pg (28-32); Mean Corpuscular Volume 88 fl (79-97); Monocytes # (Auto) 0.7 K/mm3 (0.0-0.8); Platelet Count 292 K/mm3 (140-440); Red Blood Count 4.14 M/mm3 (3.65-5.03); Red Cell Distribution Width 14.7 % (13.2-15.2)
[2018-05-20 07:07] LABS: Alanine Aminotransferase 51 units/L (7-56); Albumin 3.5 g/dL (3.9-5); BUN/Creatinine Ratio 7; Blood Urea Nitrogen 6 mg/dL (7-17); Calcium 8.5 mg/dL (8.4-10.2); Hemolysis Index 3
--- NOTE | 2018-05-20 09:45 | Progress Note ---
Assessment and Plan - Patient Problems (1) Acute appendicitis Current Visit: Yes Status: Acute Qualifiers: Acute appendicitis type: unspecified acute appendicitis type Qualified Code (s): K35.80 - Unspecified acute appendicitis Plan to address problem: Patient stable. Status post laparoscopic appendectomy - 05/19/18. POD#1. Patient appears to be doing well. Preoperative discomfort is improved. Recommendation: 1) advanced diet. If diet tolerated and pain tolerable, maybe DC home. 2) follow-up in 2 weeks 3) no heavy lifting or strenuous activity 4) as tolerated Please call with any questions Subjective Date of service: 05/20/18 Patient Reports: Positive: feels better, tolerating liquids well, other (having heartburn. incisional pain now. RLQ pain much improved. ). Negative: nausea, vomiting Objective Vital Signs - 12hr 05/19/18 05/19/18 05/19/18 22:00 22:35 23:05 Temperature Pulse Rate Pulse Rate [ 82 Apical] Respiratory 18 18 18 Rate Blood Pressure Blood Pressure [Left] O2 Sat by Pulse 96 Oximetry 05/20/18 05/20/18 05/20/18 05:21 05:33 07:30 Temperature 98.0 F 98.0 F Pulse Rate 76 69 Pulse Rate [ Apical] Respiratory 18 Rate Blood Pressure 104/69 Blood Pressure 104/62 [Left] O2 Sat by Pulse 97 100 Oximetry - General physical appearance well developed, well nourished, no distress, no pain - Eyes normal occular movement - Respiratory normal expansion, normal respiratory effort - Abdomen soft, tender (appropriately at incision sites. ), not distended, not guarding, not rigid, surgical scars (C/D/I) - Integumentary no rash, no growths, no abnormal pigmentation - Labs 05/20/18 06:19 05/20/18 06:19 Diabetes panel 05/19/18 05/20/18 Range/Units 11:35 06:19 Sodium 138 139 (137-145) mmol/L Potassium 4.3 4.1 (3.6-5.0) mmol/L Chloride 100.4 103.0 (98-107) mmol/L Carbon Dioxide 25 27 (22-30) mmol/L BUN 9 6 L (7-17) mg/dL Creatinine 0.9 0.9 (0.7-1.2) mg/dL Glucose 103 H 83 (65-100) mg/dL Calcium 8.9 8.5 (8.4-10.2) mg/dL AST 60 H 58 H (5-40) units/L ALT 52 51 (7-56) units/L Alkaline Phosphatase 50 40 (35-129) units/L Total Protein 7.0 5.6 L (6.3-8.2) g/dL Albumin 3.9 3.5 L (3.9-5) g/dL Calcium panel 05/19/18 05/20/18 Range/Units 11:35 06:19 Calcium 8.9 8.5 (8.4-10.2) mg/dL Albumin 3.9 3.5 L (3.9-5) g/dL Pituitary panel 05/19/18 05/20/18 Range/Units 11:35 06:19 Sodium 138 139 (137-145) mmol/L Potassium 4.3 4.1 (3.6-5.0) mmol/L Chloride 100.4 103.0 (98-107) mmol/L Carbon Dioxide 25 27 (22-30) mmol/L BUN 9 6 L (7-17) mg/dL Creatinine 0.9 0.9 (0.7-1.2) mg/dL Glucose 103 H 83 (65-100) mg/dL Calcium 8.9 8.5 (8.4-10.2) mg/dL Adrenal panel 18 05/20/18 Range/Units 11:35 06:19 Sodium 138 139 (137-145) mmol/L Potassium 4.3 4.1 (3.6-5.0) mmol/L Chloride 100.4 103.0 (98-107) mmol/L Carbon Dioxide 25 27 (22-30) mmol/L BUN 9 6 L (7-17) mg/dL Creatinine 0.9 0.9 (0.7-1.2) mg/dL Glucose 103 H 83 (65-100) mg/dL Calcium 8.9 8.5 (8.4-10.2) mg/dL Total Bilirubin 0.20 0.50 (0.1-1.2) mg/dL AST 60 H 58 H (5-40) units/L ALT 52 51 (7-56) units/L Alkaline Phosphatase 50 40 (35-129) units/L Total Protein 7.0 5.6 L (6.3-8.2) g/dL Albumin 3.9 3.5 L (3.9-5) g/dL
[2018-05-20] MEDS: SODIUM CHLORIDE FLUSH SYRINGE 10 ML IV SCH (09:46)
[2018-05-20] MEDS ORDERED: PROTONIX PO SCH (10:00)
[2018-05-20] MEDS ORDERED: LEVAQUIN PO SCH (11:00)
[2018-05-20] MEDS: FLAGYL PO SCH ×2 (11:09→15:12)
[2018-05-20 12:05] VITALS: BP 93/46
--- NOTE | 2018-05-20 12:05 | Discharge Summary ---
Providers - Providers Date of Admission: 05/19/18 14:30 Date of discharge: 05/20/18 Attending physician: EMMY CANELA 05/19/18 14:25 Consult to Physician [CONS] Urgent Comment: Consulting Provider: MONIKA INGRAM Physician Instructions: Reason For Exam: acute appy Primary care physician: B[employer] REBU[employer]DER Hospitalization Condition: Fair Disposition: DC-01 TO HOME OR SELFCARE Core Measure Documentation - Palliative Care Palliative Care/ Comfort Measures: Not Applicable Exam - Constitutional Vitals: Temp Pulse Resp BP Pulse Ox 98.0 F 69 18 104/62 100 05/20/18 07:30 05/20/18 07:30 05/20/18 07:30 05/20/18 07:30 05/20/18 07:30 Plan Activity: other Diet: advance as tolerated Additional Instructions: 1.Follow up with PCP in 1 week. 2.Follow up with Dr. Ingram in 2 weeks. 3.No strenous activity or heavy lifting until cleared by Dr. ingram Follow up with: PRIMARY CAREMD [Primary Care Provider] - 7 Days
== END 2018-05-20 15:30 | disposition home or self-care (01) | DRG 343 ==
LOC: ED 11:10 → 3A 14:30 → 3B-SURG 15:32
PROVIDERS: ADMIT Internal Medicine; ATTEND Internal Medicine
PROC: 0DTJ4ZZ Resection of Appendix, Percutaneous Endoscopic Approach (ICD-10-PCS; principal; 2018-05-19)
DX: K35.80 Unspecified acute appendicitis (principal); K21.9 Gastro-esophageal reflux disease without esophagitis; J45.909 Unspecified asthma, uncomplicated; F17.200 Nicotine dependence, unspecified, uncomplicated; F12.90 Cannabis use, unspecified, uncomplicated; K52.9 Noninfective gastroenteritis and colitis, unspecified; R74.0 Nonspecific elevation of levels of transaminase and lactic acid dehydrogenase [LDH]; Z72.89 Other problems related to lifestyle; Z79.899 Other long term (current) drug therapy; Z91.040 Latex allergy status
CPT/HCPCS: 36415; 74177; 80053; 81001; 83690; 84703; 85025; 88304; 96361; 96374; 96375; 96376; J0330; J0690; J1170; J1200; J1885; J2175; J2250; J2270; J2405; J2543; J2704; J2710; J2765; J3010; J7030; J7120; Q9967